=== PATIENT | female | born 1945 | race Asian ===

== ENCOUNTER 2017-03-12 18:24 | Emergency (ER) | payer MEDICARE, OTHER ==
[~2017-03-12] VITALS: Ht 152.4 cm; Wt 47.7 kg
[~2017-03-12 18:24] MED LIST: ACET-784 PO; ACET-784 PR; ALBU8.5H IH; BISA10S PR; DONE10TA PO; FLUO10CA21 PO; LOVA20 PO; MOM30 PO; MULT-68 PO; ONDA4 PO; PANT40TA25 PO; PERCT PO; SINE25100 PO; TEMA15CA PO
[2017-03-12 20:40] VITALS: BP 131/68
== END 2017-03-12 20:41 | disposition home or self-care (01) ==
LOC: EMS 18:31
DX: G23.1 Progressive supranuclear ophthalmoplegia [Steele-Richardson-Olszewski] (principal); K21.9 Gastro-esophageal reflux disease without esophagitis; I10 Essential (primary) hypertension; Z88.6 Allergy status to analgesic agent; Z91.040 Latex allergy status; W18.30XA Fall on same level, unspecified, initial encounter; Y93.89 Activity, other specified; Y99.9 Unspecified external cause status; Y92.129 Unspecified place in nursing home as the place of occurrence of the external cause
CPT/HCPCS: 99283

== ENCOUNTER → 2017-06-09 | Outpatient (CLI) | payer MEDICARE, OTHER ==
[~2017-06-09] MED LIST changes: +IOHEXOL 240 MG/ML 50 ML VIAL ONE
== END | disposition home or self-care (01) ==
LOC: RADMN 08:54
PROVIDERS: ATTEND Internal Medicine Geriatric Medicine
DX: Z43.1 Encounter for attention to gastrostomy (principal)
CPT/HCPCS: 36245; 49450; C1769; Q9966

== ENCOUNTER → 2018-03-25 | Outpatient (CLI) | payer MEDICARE, OTHER ==
[~2018-03-25] MED LIST changes: -ALBU8.5H IH; +ALBU8.5H8 IH; +DIATRIZOATE MEGLU/SOD 660/100 MG/ML 120 ML BOTTLE ONE; -DONE10TA PO; +DONE10TA8 PO; -IOHEXOL 240 MG/ML 50 ML VIAL ONE; +LIDOCAINE HCL/PF 1% 30 ML VIAL ONE
== END | disposition home or self-care (01) ==
LOC: RADMN 12:50
PROVIDERS: ATTEND Family Medicine
DX: Z46.59 Encounter for fitting and adjustment of other gastrointestinal appliance and device (principal); G20 Parkinson's disease; I10 Essential (primary) hypertension; J44.9 Chronic obstructive pulmonary disease, unspecified; K21.9 Gastro-esophageal reflux disease without esophagitis; E78.5 Hyperlipidemia, unspecified; Z79.891 Long term (current) use of opiate analgesic; Z91.040 Latex allergy status; Z88.6 Allergy status to analgesic agent; Z91.048 Other nonmedicinal substance allergy status; Z83.6 Family history of other diseases of the respiratory system; Z79.899 Other long term (current) drug therapy; Z88.8 Allergy status to other drugs, medicaments and biological substances
CPT/HCPCS: 36245; 49440; C1769; C1887; J3490; Q9963; 49450

== ENCOUNTER 2018-04-07 13:34 | Inpatient (IN) | payer MEDICARE, OTHER ==
[~2018-04-07] VITALS: Ht 154.9 cm; Wt 45.5 kg
[~2018-04-07 13:34] MED LIST changes: -DIATRIZOATE MEGLU/SOD 660/100 MG/ML 120 ML BOTTLE ONE; -LIDOCAINE HCL/PF 1% 30 ML VIAL ONE
[2018-04-07 15:28] LABS: BASOPHILS % (AUTO) 0.6 % (0.0-2.0); EOSINOPHILS % (AUTO) 0 % (1.0-6.0); HEMATOCRIT 35.6 % (36-46); HEMOGLOBIN 11.7 g/dL (12.0-16.0); LYMPHOCYTES # (AUTO) 1.2 K/uL (1.0-4.8); LYMPHOCYTES % (AUTO) 14.7 % (22.0-44.0); MEAN CORPUSCULAR HEMOGLOBIN 25.4 pg (26.0-34.0); MEAN CORPUSCULAR HGB CONC 32.8 G/dL (31.0-37.0); MEAN CORPUSCULAR VOLUME 78 fL (80-100); MONOCYTES # (AUTO) 0.4 K/uL (0.1-1.0); MONOCYTES % (AUTO) 4.5 % (2.0-9.0); NEUTROPHILS # (AUTO) 6.4 K/uL (1.8-7.7); NEUTROPHILS % (AUTO) 80.2 % (40.0-70.0); PLATELET COUNT (AUTO) 258 K/uL (150-450); RED CELL DISTRIBUTION WIDTH 13.2 % (11.5-14.5)
[2018-04-07 15:44] LABS: PROTHROMBIN TIME 10.4 SEC (9.4-11.6)
[2018-04-07 15:48] LABS: B-TYPE NATRIURETIC PEPTIDE 209 pg/mL (0-100)
[2018-04-07 15:54] LABS: ALANINE AMINOTRANSFERASE 35 U/L (12-78); ALKALINE PHOSPHATASE 71 U/L (46-116); ANION GAP 16 mmol/L (8-16); ASPARTATE AMINOTRANSFERASE 30 U/L (15-37); CALCIUM, TOTAL 8.3 mg/dL (8.8-10.5); CARBON DIOXIDE 20 mmol/L (22-29); CHLORIDE 110 mmol/L (98-107); CREATININE 0.74 mg/dL (0.60-1.30); GLUCOSE,RANDOM 89 mg/dL (70-110); LIPASE 126 U/L (73-393); SODIUM SERUM 146 mmol/L (136-145); TOTAL PROTEIN, SERUM 7.4 g/dL (6.4-8.2); UREA NITROGEN, BLOOD 16 mg/dL (7-18)
[2018-04-07] MEDS ORDERED: BISACODYL 10 MG RECTAL RECTAL SUPPOSITORY PR PRN (16:00)
[2018-04-07] MEDS ORDERED: ONDANSETRON HCL 4 MG/2 ML VIAL IVP PRN ×2 (16:00→16:15)
[2018-04-07] MEDS ORDERED: ZOLPIDEM TARTRATE 5 MG TABLET PO PRN (16:00)
[2018-04-07] MEDS ORDERED: ACETAMINOPHEN 325 MG TABLET PO PRN ×2 (16:00→16:15)
[2018-04-07] MEDS ORDERED: MAGNESIUM HYDROXIDE SUSPENSION 30 ML UDCUP PO PRN (16:00)
[2018-04-07] MEDS ORDERED: MORPHINE SULFATE 2 MG/ML SYRINGE IVP PRN (16:00)
[2018-04-07] MEDS ORDERED: HYDROCODONE/ACETAMINOPHEN 5-325 MG TABLET PO PRN (16:00)
[2018-04-07] MEDS ORDERED: ALBUTEROL SULFATE HFA 90 MCG/PUFF 8 GM INHALER IH PRN (16:00)
[2018-04-07 16:04] LABS: GLOMERULAR FILTR. RATE CALC > 60 mL/min (>60); POTASSIUM 2.8 mmol/L (3.5-5.1)
[2018-04-07] MEDS ORDERED: POTASSIUM CHLORIDE 10% 40 MEQ/30 ML LIQUID UDCUP PO ONE (16:15)
[2018-04-07] MEDS ORDERED: 0.9% SODIUM CHLORIDE 10 ML SYRINGE IVP PRN (16:15)
[2018-04-07] MEDS: HEPARIN SODIUM,PORCINE 5,000 UNITS/ML VIAL SQ SCH ×2 (16:36→23:24)
[2018-04-07] MEDS ORDERED: POTASSIUM CHLORIDE 20 MEQ ER TABLET PO PRN (16:45)
[2018-04-07] MEDS ORDERED: POTASSIUM CHLORIDE 40 MEQ in SODIUM CHLORIDE 0.9% 1,000 ML IV ONE (16:45)
[2018-04-07 16:58] VITALS: BP 141/71
[2018-04-07] MEDS ORDERED: SODIUM CHLORIDE 0.9% 500 ML IV ONE (18:30)
[2018-04-07] MEDS: POTASSIUM CHL 10 MEQ/WATER 50 ML IV PRN (18:47)
[2018-04-07] MEDS: LOVASTATIN 20 MG TABLET PO SCH (20:00)
[2018-04-07] MEDS: DOCUSATE SODIUM 100 MG CAPSULE PO SCH (20:00)
[2018-04-07] MEDS: TEMAZEPAM 15 MG CAPSULE PO SCH (20:01)
[2018-04-07 20:33] VITALS: BP 129/77
[2018-04-08] VITALS (7 sets, daily range): BP systolic 110–150; BP diastolic 59–87
[2018-04-08 06:05] LABS: ANION GAP 11 mmol/L (8-16); CALCIUM, TOTAL 8.3 mg/dL (8.8-10.5); CARBON DIOXIDE 22 mmol/L (22-29); CHLORIDE 114 mmol/L (98-107); CREATININE 0.86 mg/dL (0.60-1.30); GLOMERULAR FILTR. RATE CALC > 60 mL/min (>60); GLUCOSE,RANDOM 87 mg/dL (70-110); POTASSIUM 3.1 mmol/L (3.5-5.1); SODIUM SERUM 147 mmol/L (136-145); UREA NITROGEN, BLOOD 18 mg/dL (7-18)
[2018-04-08] MEDS: POTASSIUM CHL 10 MEQ/WATER 50 ML IV PRN ×2 (06:20→12:34)
[2018-04-08] MEDS: HEPARIN SODIUM,PORCINE 5,000 UNITS/ML VIAL SQ SCH ×2 (08:00→16:42)
[2018-04-08] MEDS: CARBIDOPA/LEVODOPA 25-100 MG TABLET PO SCH ×2 (08:00→12:00)
[2018-04-08] MEDS: FLUoxetine HCL 10 MG CAPSULE PO SCH ×2 (09:00→18:22)
[2018-04-08] MEDS: DONEPEZIL HCL 10 MG TABLET PO SCH ×2 (09:00→18:22)
[2018-04-08] MEDS: PANTOPRAZOLE SODIUM 40 MG DR TABLET PO SCH (09:00)
[2018-04-08] MEDS: DOCUSATE SODIUM 100 MG CAPSULE PO SCH ×2 (09:00→20:32)
[2018-04-08] MEDS ORDERED: LIDOCAINE HCL/PF 1% 5 ML VIAL ONE (11:33)
[2018-04-08] MEDS ORDERED: DIATRIZOATE MEGLU/SOD 660/100 MG/ML 120 ML BOTTLE ONE (11:34)
[2018-04-08] MEDS ORDERED: POTASSIUM CHLORIDE 40 MEQ in SODIUM CHLORIDE 0.9% 1,000 ML IV SCH (14:00)
[2018-04-08] MEDS ORDERED: DEXTROSE 5%-0.45% SODIUM CHL 500 ML IV ONE (14:45)
[2018-04-08] MEDS: POTASSIUM CHLORIDE 10% 40 MEQ/30 ML LIQUID UDCUP PEG PRN (18:22)
[2018-04-08] MEDS: TEMAZEPAM 15 MG CAPSULE PO SCH (20:32)
[2018-04-08] MEDS: LOVASTATIN 20 MG TABLET PO SCH (20:32)
[2018-04-09] MEDS: HEPARIN SODIUM,PORCINE 5,000 UNITS/ML VIAL SQ SCH ×4 (00:12→23:43)
[2018-04-09] MEDS: POTASSIUM CHLORIDE 10% 40 MEQ/30 ML LIQUID UDCUP PEG PRN (00:12)
[2018-04-09 03:13] LABS: APPEARANCE,URINE CLOUDY (CLEAR); BILIRUBIN,URINE NEGATIVE (NEGATIVE); GLUCOSE, URINE (UA) NEGATIVE (NEGATIVE); KETONES,URINE 15 mg/dL (NEGATIVE); LEUKOCYTE ESTERASE ,URINE MODERATE (NEGATIVE); NITRATE,URINE POSITIVE (NEGATIVE); OCCULT BLOOD,URINE NEGATIVE (NEGATIVE); PH,URINE 7.5 (5.0-8.0); PROTEIN,URINE TRACE (NEGATIVE); UROBILINOGEN,URINE 0.2 mg/dL (<=1.0)
[2018-04-09 03:39] LABS: BACTERIA,URINE Many /HPF (None Seen); RBC,URINE 0-2 /HPF (0-2); SQUAMOUS EPITHELIAL CELL,UR Few /LPF (None Seen); TRIPLE PHOSPHATE CRYSTAL,UR Rare /LPF (None Seen)
[2018-04-09 05:30] VITALS: BP 141/68
[2018-04-09 05:56] LABS: ANION GAP 8 mmol/L (8-16); CALCIUM, TOTAL 8.2 mg/dL (8.8-10.5); CARBON DIOXIDE 24 mmol/L (22-29); CHLORIDE 114 mmol/L (98-107); CREATININE 0.68 mg/dL (0.60-1.30); GLUCOSE,RANDOM 138 mg/dL (70-110); POTASSIUM 3.2 mmol/L (3.5-5.1); SODIUM SERUM 146 mmol/L (136-145); UREA NITROGEN, BLOOD 14 mg/dL (7-18)
[2018-04-09 06:05] LABS: GLOMERULAR FILTR. RATE CALC > 60 mL/min (>60)
[2018-04-09 07:50] VITALS: BP 150/77
[2018-04-09] MEDS: DOCUSATE SODIUM 100 MG CAPSULE PO SCH ×2 (08:10→20:20)
[2018-04-09] MEDS: CARBIDOPA/LEVODOPA 25-100 MG TABLET PO SCH ×2 (08:10→11:48)
[2018-04-09] MEDS: PANTOPRAZOLE SODIUM 40 MG DR TABLET PO SCH (08:10)
[2018-04-09] MEDS: POTASSIUM CHL 10 MEQ/WATER 50 ML IV PRN ×4 (08:11→11:46)
[2018-04-09 11:17] VITALS: BP 145/78
[2018-04-09] MEDS: CefTRIAXone SODIUM 1 GM in DEXTROSE 5%-WATER 10 ML IV SCH (14:59)
[2018-04-09 15:43] VITALS: BP 139/79
[2018-04-09 20:00] VITALS: BP 143/82
[2018-04-09] MEDS: LOVASTATIN 20 MG TABLET PO SCH (20:20)
[2018-04-09] MEDS: TEMAZEPAM 15 MG CAPSULE PO SCH (20:20)
[2018-04-09 23:14] VITALS: BP 130/77
[2018-04-10 05:10] VITALS: BP 129/84
[2018-04-10 06:03] LABS: BASOPHILS % (AUTO) 0.5 % (0.0-2.0); EOSINOPHILS % (AUTO) 0.5 % (1.0-6.0); HEMATOCRIT 39.4 % (36-46); HEMOGLOBIN 13.1 g/dL (12.0-16.0); LYMPHOCYTES # (AUTO) 1.5 K/uL (1.0-4.8); LYMPHOCYTES % (AUTO) 18.8 % (22.0-44.0); MEAN CORPUSCULAR HGB CONC 33.4 G/dL (31.0-37.0); MEAN CORPUSCULAR VOLUME 78 fL (80-100); MONOCYTES # (AUTO) 0.5 K/uL (0.1-1.0); MONOCYTES % (AUTO) 6.5 % (2.0-9.0); NEUTROPHILS # (AUTO) 6.1 K/uL (1.8-7.7); NEUTROPHILS % (AUTO) 73.7 % (40.0-70.0); PLATELET COUNT (AUTO) 281 K/uL (150-450); RED BLOOD CELL COUNT(AUTO) 5.05 MIL/uL (4.00-5.20); RED CELL DISTRIBUTION WIDTH 13.3 % (11.5-14.5)
[2018-04-10 06:20] LABS: ANION GAP 8 mmol/L (8-16); CALCIUM, TOTAL 8.5 mg/dL (8.8-10.5); CARBON DIOXIDE 26 mmol/L (22-29); CHLORIDE 108 mmol/L (98-107); CREATININE 0.82 mg/dL (0.60-1.30); GLUCOSE,RANDOM 138 mg/dL (70-110); POTASSIUM 3.5 mmol/L (3.5-5.1); SODIUM SERUM 142 mmol/L (136-145); UREA NITROGEN, BLOOD 19 mg/dL (7-18)
[2018-04-10 06:41] LABS: GLOMERULAR FILTR. RATE CALC > 60 mL/min (>60)
[2018-04-10 07:51] VITALS: BP 124/77
[2018-04-10] MEDS: CARBIDOPA/LEVODOPA 25-100 MG TABLET PO SCH ×2 (08:00→11:20)
[2018-04-10] MEDS: HEPARIN SODIUM,PORCINE 5,000 UNITS/ML VIAL SQ SCH ×3 (08:00→23:23)
[2018-04-10] MEDS: FLUoxetine HCL 10 MG CAPSULE PO SCH (09:00)
[2018-04-10] MEDS: DONEPEZIL HCL 10 MG TABLET PO SCH (09:00)
[2018-04-10] MEDS: DOCUSATE SODIUM 100 MG CAPSULE PO SCH ×2 (09:00→20:06)
[2018-04-10] MEDS: PANTOPRAZOLE SODIUM 40 MG DR TABLET PO SCH (09:00)
[2018-04-10 11:29] VITALS: BP 133/79
[2018-04-10] MEDS: CefTRIAXone SODIUM 1 GM in DEXTROSE 5%-WATER 10 ML IV SCH (15:15)
[2018-04-10 19:22] VITALS: BP 140/81
[2018-04-10] MEDS: TEMAZEPAM 15 MG CAPSULE PO SCH (20:06)
[2018-04-10] MEDS: LOVASTATIN 20 MG TABLET PO SCH (21:15)
[2018-04-10 23:44] VITALS: BP 130/74
[2018-04-11 04:16] VITALS: BP 126/74
[2018-04-11 07:30] VITALS: BP 133/70
[2018-04-11] MEDS: DONEPEZIL HCL 10 MG TABLET PO SCH (09:20)
[2018-04-11] MEDS: CARBIDOPA/LEVODOPA 25-100 MG TABLET PO SCH ×2 (09:20→12:30)
[2018-04-11] MEDS: FLUoxetine HCL 10 MG CAPSULE PO SCH (09:20)
[2018-04-11] MEDS: DOCUSATE SODIUM 100 MG CAPSULE PO SCH (09:20)
[2018-04-11] MEDS: HEPARIN SODIUM,PORCINE 5,000 UNITS/ML VIAL SQ SCH (09:20)
[2018-04-11] MEDS ORDERED: PANTOPRAZOLE SODIUM 40 MG/VIAL IVP SCH (09:30)
[2018-04-11 11:20] VITALS: BP 124/73
[2018-04-11] MEDS: CefTRIAXone SODIUM 1 GM in DEXTROSE 5%-WATER 10 ML IV SCH (12:32)
== END 2018-04-11 13:50 | DRG 690 ==
LOC: EMS 13:37 → 4E 15:20 → 6N 04-08 16:00
PROVIDERS: ADMIT Internal Medicine; ATTEND Internal Medicine
PROC: 0DH63UZ Insertion of Feeding Device into Stomach, Percutaneous Approach (ICD-10-PCS; principal; 2018-04-08)
DX: N39.0 Urinary tract infection, site not specified (principal); G23.1 Progressive supranuclear ophthalmoplegia [Steele-Richardson-Olszewski]; Z43.1 Encounter for attention to gastrostomy; E87.0 Hyperosmolality and hypernatremia; E87.1 Hypo-osmolality and hyponatremia; E86.0 Dehydration; D64.9 Anemia, unspecified; E78.5 Hyperlipidemia, unspecified; E87.6 Hypokalemia; G20 Parkinson's disease; I10 Essential (primary) hypertension; J45.909 Unspecified asthma, uncomplicated; K21.9 Gastro-esophageal reflux disease without esophagitis; R13.10 Dysphagia, unspecified; Z88.6 Allergy status to analgesic agent; Z91.040 Latex allergy status; Z88.8 Allergy status to other drugs, medicaments and biological substances; Z79.899 Other long term (current) drug therapy; Z82.49 Family history of ischemic heart disease and other diseases of the circulatory system; Z83.6 Family history of other diseases of the respiratory system
CPT/HCPCS: 49450; 51701; 83605; 84132; 87040; 87081; 87086; 93005; 96372; 99285; C9113; J0696; J1644; J3480; J3490; J7030; J7040; J7060

== ENCOUNTER → 2018-04-25 | Outpatient (CLI) | payer MEDICARE, OTHER | END | disposition home or self-care (01) | LOC: RADMN 13:11 | PROVIDERS: ATTEND General Practice | DX: R13.12 Dysphagia, oropharyngeal phase (principal); G23.1 Progressive supranuclear ophthalmoplegia [Steele-Richardson-Olszewski]; I10 Essential (primary) hypertension; G20 Parkinson's disease; J44.9 Chronic obstructive pulmonary disease, unspecified; K21.9 Gastro-esophageal reflux disease without esophagitis; E78.5 Hyperlipidemia, unspecified; Z91.040 Latex allergy status; Z91.048 Other nonmedicinal substance allergy status; Z79.891 Long term (current) use of opiate analgesic; Z88.6 Allergy status to analgesic agent; Z79.899 Other long term (current) drug therapy; Z98.890 Other specified postprocedural states; Z88.8 Allergy status to other drugs, medicaments and biological substances; Z83.6 Family history of other diseases of the respiratory system; Z82.49 Family history of ischemic heart disease and other diseases of the circulatory system | CPT/HCPCS: 49440; C1769 ×2; 49450 ==

== ENCOUNTER 2018-07-04 11:24 | Emergency (ER) | payer MEDICARE, OTHER ==
[~2018-07-04] VITALS: Ht 147.3 cm; Wt 49.4 kg
[2018-07-04] MEDS ORDERED: DENO60DI SQ (11:51)
[2018-07-04] MEDS ORDERED: ALBUTEROL SULFATE 5 MG/ML 20 ML NEB SOLN [BULK] NEB ONE (15:00)
[2018-07-04] MEDS ORDERED: IPRATROPIUM BROMIDE 0.5 MG/2.5 ML NEB SOLUTION NEB ONE (15:00)
[2018-07-04 15:55] VITALS: BP 147/86
== END 2018-07-04 17:01 | disposition home or self-care (01) ==
LOC: EMS 11:26
DX: K94.29 Other complications of gastrostomy (principal); I10 Essential (primary) hypertension; K21.9 Gastro-esophageal reflux disease without esophagitis; R79.1 Abnormal coagulation profile; Z91.040 Latex allergy status; Z88.6 Allergy status to analgesic agent; Z88.8 Allergy status to other drugs, medicaments and biological substances
CPT/HCPCS: 36415; 49450; 85610; 99284; C1769; C1887

== ENCOUNTER 2018-08-21 15:46 | Inpatient (IN) | payer MEDICARE, OTHER ==
[~2018-08-21] VITALS: Ht 160 cm; Wt 70.5 kg
[~2018-08-21 15:46] MED LIST changes: -ALBU8.5H8 IH; +DENO60DI SQ; -MOM30 PO; -MULT-68 PO; -ONDA4 PO
[2018-08-21] MEDS ORDERED: LACT-125 GT (16:09)
[2018-08-21] MEDS ORDERED: VITAD1000 PO (16:22)
[2018-08-21] MEDS ORDERED: LORA0.5T2 PO (16:22)
[2018-08-21] MEDS ORDERED: ALBU8HFA IH (16:22)
[2018-08-21] MEDS ORDERED: ACET-784 PO (16:22)
[2018-08-21] MEDS ORDERED: ACET650S27 PR (16:22)
[2018-08-21] MEDS ORDERED: POTA20LI36 PO (16:22)
[2018-08-21] MEDS ORDERED: QUET25TA PO (16:22)
[2018-08-21] MEDS ORDERED: LIDO700A15 TD (16:22)
[2018-08-21] MEDS ORDERED: MOM30 PO (16:22)
[2018-08-21] MEDS ORDERED: SODIUM CHLORIDE 0.9% 1,000 ML IV ONE (17:00)
[2018-08-21 17:17] LABS: BASOPHILS % (AUTO) 0.5 % (0.0-2.0); EOSINOPHILS % (AUTO) 0.4 % (1.0-6.0); HEMATOCRIT 36.8 % (36-46); HEMOGLOBIN 11.7 g/dL (12.0-16.0); LYMPHOCYTES # (AUTO) 1.2 K/uL (1.0-4.8); LYMPHOCYTES % (AUTO) 15.6 % (22.0-44.0); MEAN CORPUSCULAR HEMOGLOBIN 25.4 pg (26.0-34.0); MEAN CORPUSCULAR HGB CONC 31.8 G/dL (31.0-37.0); MEAN CORPUSCULAR VOLUME 80 fL (80-100); MONOCYTES # (AUTO) 0.5 K/uL (0.1-1.0); MONOCYTES % (AUTO) 5.9 % (2.0-9.0); NEUTROPHILS # (AUTO) 6.1 K/uL (1.8-7.7); NEUTROPHILS % (AUTO) 77.6 % (40.0-70.0); PLATELET COUNT (AUTO) 256 K/uL (150-450); RED BLOOD CELL COUNT(AUTO) 4.61 MIL/uL (4.00-5.20); RED CELL DISTRIBUTION WIDTH 13.6 % (11.5-14.5)
[2018-08-21] MEDS ORDERED: LORazepam 2 MG/ML VIAL IVP ONE (17:45)
[2018-08-21 17:48] LABS: ANION GAP 10 mmol/L (8-16); CALCIUM, TOTAL 9.1 mg/dL (8.8-10.5); CARBON DIOXIDE 27 mmol/L (22-29); CHLORIDE 111 mmol/L (98-107); GLUCOSE,RANDOM 94 mg/dL (70-110); POTASSIUM 3.8 mmol/L (3.5-5.1); SODIUM SERUM 148 mmol/L (136-145); UREA NITROGEN, BLOOD 18 mg/dL (7-18)
[2018-08-21 17:49] LABS: GLOMERULAR FILTR. RATE CALC > 60 mL/min (>60)
[2018-08-21 18:01] LABS: ALANINE AMINOTRANSFERASE 13 U/L (12-78); ALKALINE PHOSPHATASE 80 U/L (46-116); ASPARTATE AMINOTRANSFERASE 19 U/L (15-37); BILIRUBIN,TOTAL 0.6 mg/dL (0.1-1.0); LIPASE 164 U/L (73-393); TOTAL PROTEIN, SERUM 7.4 g/dL (6.4-8.2)
[2018-08-21 18:51] LABS: APPEARANCE,URINE TURBID (CLEAR); BILIRUBIN,URINE NEGATIVE (NEGATIVE); GLUCOSE, URINE (UA) NEGATIVE (NEGATIVE); KETONES,URINE TRACE mg/dL (NEGATIVE); LEUKOCYTE ESTERASE ,URINE NEGATIVE (NEGATIVE); NITRATE,URINE NEGATIVE (NEGATIVE); OCCULT BLOOD,URINE NEGATIVE (NEGATIVE); PH,URINE 7.5 (5.0-8.0); PROTEIN,URINE NEGATIVE (NEGATIVE); UROBILINOGEN,URINE 0.2 mg/dL (<=1.0)
[2018-08-21 18:56] LABS: AMORPHOUS SEDIMENT,UR Many /LPF (None Seen); BACTERIA,URINE Few /HPF (None Seen); RBC,URINE 0-2 /HPF (0-2); SQUAMOUS EPITHELIAL CELL,UR Few /LPF (None Seen)
[2018-08-21] MEDS ORDERED: ONDANSETRON HCL 4 MG/2 ML VIAL IVP PRN (20:30)
[2018-08-21] MEDS ORDERED: ALBUTEROL SULFATE 2.5 MG/0.5 ML NEB SOLUTION NEB PRN (20:30)
[2018-08-21] MEDS ORDERED: BISACODYL 10 MG RECTAL RECTAL SUPPOSITORY PR PRN (20:30)
[2018-08-21] MEDS: DEXTROSE 5%-0.45% SODIUM CHL 1,000 ML IV SCH (20:54)
[2018-08-21 21:00] VITALS: BP 110/58
[2018-08-21 23:55] VITALS: BP 147/80
[2018-08-22] MEDS: HEPARIN SODIUM,PORCINE 5,000 UNITS/ML VIAL SQ SCH ×4 (00:51→17:36)
[2018-08-22] MEDS: LORazepam 2 MG/ML VIAL IVP PRN (01:23)
[2018-08-22 04:52] VITALS: BP 157/85
[2018-08-22] MEDS: MORPHINE SULFATE 4 MG/ML SYRINGE IVP PRN ×2 (05:21→23:17)
[2018-08-22 06:20] LABS: ANION GAP 9 mmol/L (8-16); CALCIUM, TOTAL 8.7 mg/dL (8.8-10.5); CARBON DIOXIDE 23 mmol/L (22-29); CHLORIDE 108 mmol/L (98-107); GLUCOSE,RANDOM 98 mg/dL (70-110); POTASSIUM 3.3 mmol/L (3.5-5.1); SODIUM SERUM 140 mmol/L (136-145); UREA NITROGEN, BLOOD 10 mg/dL (7-18)
[2018-08-22 06:24] LABS: GLOMERULAR FILTR. RATE CALC > 60 mL/min (>60)
[2018-08-22] MEDS ORDERED: POTASSIUM CHLORIDE 20 MEQ ER TABLET PO PRN ×2 (07:00→09:15)
[2018-08-22 07:10] VITALS: BP 160/80
[2018-08-22] MEDS: PANTOPRAZOLE SODIUM 40 MG/VIAL IVP SCH (09:08)
[2018-08-22] MEDS ORDERED: POTASSIUM CHL 10 MEQ/WATER 50 ML IV PRN (09:15)
[2018-08-22 11:04] VITALS: BP 148/82
[2018-08-22] MEDS: DEXTROSE 5%-0.45% SODIUM CHL 1,000 ML IV SCH (11:16)
[2018-08-22 15:41] VITALS: BP 146/82
[2018-08-22] MEDS: POTASSIUM CHL 10 MEQ/WATER 50 ML IV PRN ×2 (18:09→20:52)
[2018-08-22 19:29] VITALS: BP 155/92
[2018-08-22 23:06] VITALS: BP 156/111
[2018-08-23] MEDS: HEPARIN SODIUM,PORCINE 5,000 UNITS/ML VIAL SQ SCH ×3 (00:35→16:54)
[2018-08-23] MEDS: POTASSIUM CHL 10 MEQ/WATER 50 ML IV PRN (00:35)
[2018-08-23] MEDS: LORazepam 2 MG/ML VIAL IVP PRN (01:24)
[2018-08-23] MEDS: DEXTROSE 5%-0.45% SODIUM CHL 1,000 ML IV SCH ×2 (06:03→20:06)
[2018-08-23 06:07] VITALS: BP 169/88
[2018-08-23 07:15] VITALS: BP 154/78
[2018-08-23 07:44] LABS: ANION GAP 10 mmol/L (8-16); CALCIUM, TOTAL 9.1 mg/dL (8.8-10.5); CARBON DIOXIDE 24 mmol/L (22-29); CHLORIDE 106 mmol/L (98-107); CREATININE 0.88 mg/dL (0.60-1.30); GLUCOSE,RANDOM 97 mg/dL (70-110); POTASSIUM 3.7 mmol/L (3.5-5.1); SODIUM SERUM 140 mmol/L (136-145); UREA NITROGEN, BLOOD 10 mg/dL (7-18)
[2018-08-23 08:10] LABS: GLOMERULAR FILTR. RATE CALC > 60 mL/min (>60)
[2018-08-23] MEDS: PANTOPRAZOLE SODIUM 40 MG/VIAL IVP SCH (08:48)
[2018-08-23 11:35] VITALS: BP 148/78
[2018-08-23 16:13] VITALS: BP 144/76
[2018-08-23 19:02] VITALS: BP 163/97
[2018-08-24 00:02] VITALS: BP 164/94
[2018-08-24] MEDS: HEPARIN SODIUM,PORCINE 5,000 UNITS/ML VIAL SQ SCH ×3 (00:05→16:01)
[2018-08-24] MEDS: MORPHINE SULFATE 4 MG/ML SYRINGE IVP PRN (02:25)
[2018-08-24 05:16] VITALS: BP 169/74
[2018-08-24] MEDS: PANTOPRAZOLE SODIUM 40 MG/VIAL IVP SCH (07:55)
[2018-08-24] MEDS: LORazepam 2 MG/ML VIAL IVP PRN (07:56)
[2018-08-24 07:57] VITALS: BP 179/95
[2018-08-24 11:59] VITALS: BP 144/80
[2018-08-24] MEDS: DEXTROSE 5%-0.45% SODIUM CHL 1,000 ML IV SCH (12:56)
[2018-08-24 15:23] VITALS: BP 140/94
== END 2018-08-24 17:10 | disposition hospice, inpatient (51) | DRG 57 ==
LOC: EMS 15:47 → 6N 18:44
PROVIDERS: ADMIT Internal Medicine; ATTEND Internal Medicine
DX: G20 Parkinson's disease (principal); Z43.1 Encounter for attention to gastrostomy; E87.0 Hyperosmolality and hypernatremia; G23.1 Progressive supranuclear ophthalmoplegia [Steele-Richardson-Olszewski]; R13.10 Dysphagia, unspecified; R62.7 Adult failure to thrive; K21.9 Gastro-esophageal reflux disease without esophagitis; J45.909 Unspecified asthma, uncomplicated; Z66 Do not resuscitate; I10 Essential (primary) hypertension; Z87.440 Personal history of urinary (tract) infections; Z88.8 Allergy status to other drugs, medicaments and biological substances; E86.0 Dehydration
CPT/HCPCS: 87081; 92610; 96372; 96374; C9113; G0378; J1644; J2060; J2270; J3480; J7030